=== PATIENT | male | born 1970 | race Caucasian/White ===

== ENCOUNTER 2024-11-26 19:42 | Inpatient (IN) | payer OTHER ==
[~2024-11-26] VITALS: Ht 170.2 cm; Wt 141.3 kg
[2024-11-26] MEDS: SODIUM CHLORIDE 0.9% 1,000 ML IV ONE ×3 (20:44→22:16)
[2024-11-26] MEDS ORDERED: CALCIUM GLUCONATE 100MG/ML 10ML VIAL IV ONE (20:45)
[2024-11-26 20:57] LABS: HEMATOCRIT. 37.7 % (42.0-52.0); HEMOGLOBIN. 11.6 g/dL (14.0-18.0); MEAN CORPUSCULAR HEMOGLOBIN 28.1 pg (28.0-32.0); MEAN CORPUSCULAR HGB CONC 30.7 g/dL (31.0-37.0); MEAN CORPUSCULAR VOLUME 91.5 fL (80.0-94.0); MEAN PLATELET VOLUME 9.6 fl (7.4-10.4); PLATELET 241 x1000/uL (130-400); RED BLOOD CELL COUNT 4.12 mill/uL (4.7-6.1); RED CELL DISTRIBUTION WIDTH 17.3 % (11.6-14.6); WHITE BLOOD COUNT 11.2 x1000/uL (4.5-11.0)
[2024-11-26 21:01] LABS: DIFFERENTIAL COMMENT 1; PROTHROMBIN TIME 10.7 sec (9.6-11.0)
[2024-11-26 21:05] LABS: CHLORIDE 94 mEq/L (98-107); SODIUM 128 mEq/L (136-145)
[2024-11-26 21:07] LABS: CALCIUM 8.4 mg/dL (8.7-10.4)
[2024-11-26 21:12] LABS: ETHANOL BLOOD < 10 mg/dL (<10); GLUCOSE 191 mg/dL (70-105); UREA NITROGEN BLOOD 84 mg/dL (9-23)
[2024-11-26 21:13] LABS: ALANINE AMINOTRANSFERASE 17 IU/L (10-49); ALBUMIN 4.1 g/dL (3.2-4.8); ASPARTATE AMINOTRANSFERASE 23 IU/L (<34); PLATELET ESTIMATE NORMAL
[2024-11-26 21:14] LABS: BILIRUBIN DIRECT < 0.1 mg/dL (<=3.0); BILIRUBIN TOTAL 0.2 mg/dL (0.1-1.0); PROTEIN TOTAL 7.2 g/dL (6.0-8.3)
[2024-11-26] MEDS ORDERED: EPINEPHRINE 5 MG in SODIUM CHLORIDE 0.9% 245 ML IV ONE (21:15)
[2024-11-26 21:16] LABS: THYROID STIMULATING HORMONE 0.95 uIU/mL (0.55-4.78)
[2024-11-26 21:20] LABS: BG BASE EXCESS -24.1 mmol/L (-2.0-3.0); BG CARBOXYHEMOGLOBIN 0.3 % (0.5-1.5); BG DEOXYHEMOGLOBIN 6.5 % (0.0-5.0); BG FRACTION INSPIRED OXYGEN 36; BG HCO3 ACT 6.2 mmol/L (21.0-28.0); BG METHEMOGLOBIN 0.3 % (0.5-1.5); BG OXYGEN SATURATION 93.5 % (94.0-98.0); BG OXYHEMOGLOBIN 92.9 % (94.0-98.0); BG PCO2 26.6 mmHg (35.0-48.0); BG PH 6.983 (7.350-7.450); BG PO2 90.8 mmHg (83.0-108.0); BG SAMPLE SITE LEFT RADIAL; BG TOTAL HEMOGLOBIN 11.4 g/dL (13.5-17.5); BG VENT MODE NASAL CANNULA
[2024-11-26 21:20] LABS: CARBON DIOXIDE < 10 mEq/L (21-32); POTASSIUM 8.1 mEq/L (3.5-5.1)
[2024-11-26 21:21] LABS: CREATININE 16.2 mg/dL (0.6-1.3)
[2024-11-26 21:22] LABS: TROPONIN I HIGH SENSITIVITY 72 ng/L (3.0-53)
[2024-11-26] MEDS: CALCIUM GLUCONATE 1GM PREMIX 50 ML IV SCH (21:30)
[2024-11-26] MEDS: DEXTROSE 50% WATER 50ML SYRINGE IV ONE (21:36)
[2024-11-26 21:37] VITALS: PULSE 62; RESP 20; O2SAT 99
[2024-11-26] MEDS: ALBUTEROL (0.083%) 2.5MG/3ML NEB HHN ONE (21:37)
[2024-11-26] MEDS: INSULIN REGULAR (HUMULIN R) 1000UNITS/10ML VIAL IV ONE (21:38)
[2024-11-26] MEDS: EPINEPHRINE 5 MG in SODIUM CHLORIDE 0.9% 245 ML IV NR (21:41)
[2024-11-26] MEDS: SODIUM BICARBONATE 8.4% 50MEQ/50ML SYR IV ONE (21:42)
[2024-11-26] MEDS: CALCIUM GLUCONATE 100MG/ML 10ML VIAL IV ONE (21:49)
[2024-11-26] MEDS: SODIUM BICARBONATE 100 MEQ in SODIUM CHLORIDE 0.45% 900 ML IV SCH (22:10)
[2024-11-26] MEDS: SODIUM ZIRCONIUM CYCLOSILICATE 10GM/PACKET PO NR (22:21)
[2024-11-26] MEDS ORDERED: IPRATROPIUM/ALBUTEROL 0.5-3(2.5)MG/3ML NEB NEB PRN (22:30)
[2024-11-26] MEDS: CEFTRIAXONE 1GM/50ML 50 ML IV ONE (22:38)
[2024-11-26] MEDS ORDERED: BLOOD SUGAR DIAGNOSTIC STRIP TEST PRN (23:00)
[2024-11-26] MEDS ORDERED: SODIUM CHLORIDE 0.9% 1,000 ML IV SCH (23:00)
[2024-11-26] MEDS ORDERED: POTASSIUM CHLORIDE 40 MEQ in SODIUM CHLORIDE 0.9% 250 ML IV PRN (23:00)
[2024-11-26] MEDS ORDERED: DEXT 5%/0.9% NACL 1,000 ML IV SCH (23:00)
[2024-11-26] MEDS ORDERED: DEXTROSE 50% WATER 50ML SYRINGE IV PRN ×2 (23:00→23:15)
[2024-11-26] MEDS ORDERED: SODIUM PHOSPHATE 15 MMOL in SODIUM CHLORIDE 0.9% 250 ML IV PRN (23:00)
[2024-11-26] MEDS ORDERED: MAGNESIUM 2 G PREMIX 50 ML IV PRN (23:00)
[2024-11-26] MEDS ORDERED: KCL 20MEQ/100ML PREMIX 100 ML IV PRN (23:00)
[2024-11-26] MEDS: SODIUM POLYSTYRENE SULFONATE 15 G/60 ML BOT PO NR (23:30)
[2024-11-26] MEDS ORDERED: LIDOCAINE 2% 6ML GLYDO MM NR (23:45)
[2024-11-26 23:59] LABS: CHLORIDE 98 mEq/L (98-107); SODIUM 133 mEq/L (136-145)
[2024-11-27] VITALS (95 sets, daily range): BP systolic 62–166; BP diastolic 27–80; PULSE 102–131; RESP 10–32; TEMP 36.1–37.4; O2SAT 89–100
[2024-11-27] LABS: CALCIUM 8.2 mg/dL (8.7-10.4)
[2024-11-27] MEDS ORDERED: POTASSIUM CHLORIDE 40 MEQ in SODIUM CHLORIDE 0.9% 230 ML IV PRN
[2024-11-27] MEDS ORDERED: DOCUSATE SODIUM 100MG CAPSULE PO PRN
[2024-11-27] MEDS ORDERED: MAGNESIUM 2 G PREMIX 50 ML IV PRN
[2024-11-27] MEDS ORDERED: INSULIN REGULAR (DRIP) 100 UNITS in SODIUM CHLORIDE 0.9% 99 ML IV SCH
[2024-11-27] MEDS ORDERED: MAGNESIUM/ALUMINUM HYDROXIDE/SIMETHICONE 30ML UDC PO PRN
[2024-11-27] MEDS ORDERED: BLOOD SUGAR DIAGNOSTIC STRIP TEST PRN
[2024-11-27] MEDS ORDERED: KCL 20MEQ/100ML PREMIX 100 ML IV PRN
[2024-11-27] MEDS ORDERED: SODIUM PHOSPHATE 15 MMOL in SODIUM CHLORIDE 0.9% 245 ML IV PRN
[2024-11-27 00:04] LABS: GLUCOSE 271 mg/dL (70-105); IRON 66 ug/dL (65-175); URIC ACID 6.4 mg/dL (3.7-9.2)
[2024-11-27 00:05] LABS: UREA NITROGEN BLOOD 81 mg/dL (9-23)
[2024-11-27 00:07] LABS: TOTAL IRON BINDING CAPACITY 415 ug/dl (250-425)
[2024-11-27 00:10] LABS: FERRITIN 57 ng/mL (22-322)
[2024-11-27] MEDS ORDERED: EPINEPHRINE 10 MG in SODIUM CHLORIDE 0.9% 240 ML IV SCH (00:30)
[2024-11-27] MEDS ORDERED: MIDODRINE HCL 5MG TABLET PO PRN (00:30)
[2024-11-27] MEDS: INSULIN REGULAR 100U/100ML PMX 100 ML IV SCH (00:33)
[2024-11-27 00:36] LABS: VITAMIN B12 SERUM > 2000 pg/mL (211-911)
[2024-11-27 00:59] LABS: BG BASE EXCESS -28.3 mmol/L (-2.0-3.0); BG CARBOXYHEMOGLOBIN 0.1 % (0.5-1.5); BG DEOXYHEMOGLOBIN 4.6 % (0.0-5.0); BG FRACTION INSPIRED OXYGEN 21; BG METHEMOGLOBIN 0.3 % (0.5-1.5); BG OXYGEN SATURATION 95.4 % (94.0-98.0); BG PCO2 22.4 mmHg (35.0-48.0); BG PH 6.866 (7.350-7.450); BG PO2 109.8 mmHg (83.0-108.0); BG SAMPLE SITE LEFT RADIAL; BG TOTAL HEMOGLOBIN 11.7 g/dL (13.5-17.5); BG VENT MODE ROOM AIR
[2024-11-27 01:00] LABS: CHLORIDE 98 mEq/L (98-107); SODIUM 133 mEq/L (136-145)
[2024-11-27 01:01] LABS: CALCIUM 8.4 mg/dL (8.7-10.4)
[2024-11-27 01:05] LABS: GLUCOSE 282 mg/dL (70-105)
[2024-11-27 01:06] LABS: UREA NITROGEN BLOOD 79 mg/dL (9-23)
[2024-11-27 01:48] LABS: CARBON DIOXIDE < 10 mEq/L (21-32); CREATININE 15.8 mg/dL (0.6-1.3)
[2024-11-27 01:49] LABS: PHOSPHORUS 12.3 mg/dL (2.5-4.9); TROPONIN I HIGH SENSITIVITY 114 ng/L (3.0-53)
[2024-11-27] MEDS: BLOOD SUGAR DIAGNOSTIC STRIP TEST SCH ×4 (01:52→22:05)
[2024-11-27 02:01] LABS: CARBON DIOXIDE < 10 mEq/L (21-32)
[2024-11-27] MEDS: EPINEPHRINE 5 MG in SODIUM CHLORIDE 0.9% 250 ML IV PRN (02:29)
[2024-11-27] MEDS: SODIUM BICARBONATE 150 MEQ in SODIUM CHLORIDE 0.9% 850 ML IV SCH (04:23)
[2024-11-27] MEDS: VANCOMYCIN 1G PREMIX 200 ML IV SCH (04:24)
[2024-11-27] MEDS: PANTOPRAZOLE SODIUM 40 MG/VIAL IV SCH ×2 (04:24→16:38)
[2024-11-27] MEDS: SODIUM BICARBONATE 8.4% 50MEQ/50ML SYR IV NR (04:24)
[2024-11-27] MEDS: EPINEPHRINE 10 MG in SODIUM CHLORIDE 0.9% 240 ML IV PRN (04:34)
[2024-11-27] MEDS: NOREPINEPHRINE 8MG/250ML PMX 250 ML IV PRN (05:06)
[2024-11-27] MEDS ORDERED: PIPERACILLIN/TAZO 3.375G/100ML 100 ML IV SCH (06:00)
[2024-11-27 06:38] LABS: HEMATOCRIT. 37.8 % (42.0-52.0); HEMOGLOBIN. 11.4 g/dL (14.0-18.0); MEAN CORPUSCULAR HEMOGLOBIN 28.7 pg (28.0-32.0); MEAN CORPUSCULAR HGB CONC 30.2 g/dL (31.0-37.0); MEAN PLATELET VOLUME 10.2 fl (7.4-10.4); PLATELET 236 x1000/uL (130-400); RED BLOOD CELL COUNT 3.98 mill/uL (4.7-6.1); RED CELL DISTRIBUTION WIDTH 17.6 % (11.6-14.6); WHITE BLOOD COUNT 14.6 x1000/uL (4.5-11.0)
[2024-11-27 06:39] LABS: CALCIUM 8.3 mg/dL (8.7-10.4); CHLORIDE 99 mEq/L (98-107); POTASSIUM 5.5 mEq/L (3.5-5.1); SODIUM 135 mEq/L (136-145)
[2024-11-27 06:41] LABS: DIFFERENTIAL COMMENT 1
[2024-11-27 06:43] LABS: TRIGLYCERIDE 129 mg/dL (0-150)
[2024-11-27 06:44] LABS: GLUCOSE 229 mg/dL (70-105)
[2024-11-27 06:45] LABS: ALANINE AMINOTRANSFERASE 21 IU/L (10-49); ALBUMIN 3.7 g/dL (3.2-4.8); ASPARTATE AMINOTRANSFERASE 30 IU/L (<34); CREATINE KINASE 304 IU/L (46-171); LDL CHOLESTEROL 40 mg/dL (5-100); UREA NITROGEN BLOOD 67 mg/dL (9-23)
[2024-11-27 06:46] LABS: BILIRUBIN DIRECT < 0.1 mg/dL (<=3.0); CHOLESTEROL 98 mg/dL (<200); HDL CHOLESTEROL 38 mg/dL (>55)
[2024-11-27 06:47] LABS: BILIRUBIN TOTAL < 0.2 mg/dL (0.1-1.0); PROTEIN TOTAL 6.6 g/dL (6.0-8.3); TROPONIN I HIGH SENSITIVITY 227 ng/L (3.0-53)
[2024-11-27] MEDS ORDERED: BLOOD SUGAR DIAGNOSTIC STRIP TEST SCH (07:50)
[2024-11-27] MEDS: ASPIRIN 325MG EC TABLET PO NR (08:15)
[2024-11-27] MEDS ORDERED: INSULIN LISPRO 100 UNITS/ML SUBCUT SCH (08:20)
[2024-11-27 08:38] LABS: CALCIUM 7.8 mg/dL (8.7-10.4); CARBON DIOXIDE 12 mEq/L (21-32); CHLORIDE 101 mEq/L (98-107); SODIUM 137 mEq/L (136-145)
[2024-11-27 08:43] LABS: GLUCOSE 158 mg/dL (70-105)
[2024-11-27 08:44] LABS: UREA NITROGEN BLOOD 79 mg/dL (9-23)
[2024-11-27 08:54] LABS: BG BASE EXCESS -17.6 mmol/L (-2.0-3.0); BG CARBOXYHEMOGLOBIN 0.8 % (0.5-1.5); BG DEOXYHEMOGLOBIN 2.9 % (0.0-5.0); BG FRACTION INSPIRED OXYGEN 28; BG METHEMOGLOBIN 0.3 % (0.5-1.5); BG OXYGEN SATURATION 97.1 % (94.0-98.0); BG PCO2 24.4 mmHg (35.0-48.0); BG PH 7.187 (7.350-7.450); BG PO2 103.3 mmHg (83.0-108.0); BG SAMPLE SITE RIGHT RADIAL; BG TOTAL HEMOGLOBIN 10.9 g/dL (13.5-17.5); BG VENT MODE NASAL CANNULA
[2024-11-27 08:58] LABS: CARBON DIOXIDE < 10 mEq/L (21-32); CREATININE 15.9 mg/dL (0.6-1.3)
[2024-11-27] MEDS ORDERED: SODIUM CHLORIDE 0.9% 1,000 ML IV SCH (09:00)
[2024-11-27] MEDS: MULTIVITAMINS,THER W-MINERALS TABLET PO SCH (09:00)
[2024-11-27 09:11] LABS: HEPATITIS B SURFACE ANTIGEN NEGATIVE (Negative)
[2024-11-27 09:14] LABS: CREATININE 15.5 mg/dL (0.6-1.3)
[2024-11-27] MEDS: PIPERACILLIN/TAZO 3.375G/50ML 50 ML IV SCH (09:20)
[2024-11-27] MEDS: ENOXAPARIN 30MG/0.3ML SYR SUBCUT SCH (09:21)
[2024-11-27] MEDS: FAMOTIDINE 20MG/2ML VIAL IV SCH (09:21)
[2024-11-27] MEDS: SODIUM CHLORIDE 0.9% 1,000 ML IV ONE (09:22)
[2024-11-27 09:31] LABS: HEPATITIS A AB IGM NEGATIVE (Negative)
[2024-11-27 09:32] LABS: HEPATITIS B CORE AB IGM NEGATIVE (Negative); HEPATITIS C AB NON REACTIVE (Neg) (Negative)
[2024-11-27] MEDS: DEXT 5%/0.9% NACL 1,000 ML IV SCH ×3 (10:47→17:30)
[2024-11-27 10:55] LABS: ANISOCYTOSIS 1+; PLATELET ESTIMATE NORMAL
[2024-11-27 12:50] LABS: CREATINE KINASE MB FRACTION 12.5 ng/mL (0.5-3.6)
[2024-11-27 14:46] LABS: TROPONIN I HIGH SENSITIVITY 1373 ng/L (3.0-53)
[2024-11-27 16:37] LABS: CALCIUM 7.6 mg/dL (8.7-10.4)
[2024-11-27] MEDS: ENOXAPARIN 150MG/ML SYR SUBCUT SCH (16:38)
[2024-11-27 16:43] LABS: CREATININE 9.5 mg/dL (0.6-1.3)
[2024-11-27] MEDS ORDERED: DEXTROSE 50% WATER 50ML SYRINGE IV PRN ×2 (17:15)
[2024-11-27 17:25] LABS: PHOSPHORUS 5.9 mg/dL (2.5-4.9)
[2024-11-27] MEDS: INSULIN LISPRO 100 UNITS/ML SUBCUT SCH (18:20)
[2024-11-27] MEDS: MAGNESIUM 1 G PREMIX 100 ML IV NR (18:53)
[2024-11-27] MEDS: SODIUM CHLORIDE 0.9% 1,000 ML IV SCH ×2 (19:24)
[2024-11-27] MEDS: MAGNESIUM 2 G PREMIX 50 ML IV NR (20:21)
[2024-11-27] MEDS: CARVEDILOL 3.125 MG TABLET PO SCH (21:00)
[2024-11-27] MEDS: ATORVASTATIN CALCIUM 40MG TABLET PO SCH (21:30)
[2024-11-27] MEDS: ACETAMINOPHEN 325MG TABLET PO PRN (21:30)
[2024-11-27 22:18] LABS: INR 1.1; PARTIAL THROMBOPLASTIN TIME 37.5 sec (23.4-31.0); PROTHROMBIN TIME 11.8 sec (9.6-11.0)
[2024-11-27 22:21] LABS: CREATINE KINASE 396 IU/L (46-171); CREATINE KINASE MB FRACTION 22.4 ng/mL (0.5-3.6)
[2024-11-27 22:42] LABS: TROPONIN I HIGH SENSITIVITY 6046 ng/L (3.0-53)
[2024-11-27] MEDS: HEPARIN 60 UNITS/KG BOLUS IV NR (23:04)
[2024-11-27] MEDS: HEPARIN 25,000 UNITS PREMIX 250 ML IV PRN (23:18)
[2024-11-28] VITALS (52 sets, daily range): BP systolic 87–168; BP diastolic 39–98; PULSE 90–108; RESP 6–29; TEMP 36.8–37.3; O2SAT 87–96
[2024-11-28 01:34] LABS: CREATINE KINASE MB FRACTION 18.2 ng/mL (0.5-3.6)
[2024-11-28 03:07] LABS: HEMATOCRIT. 26.9 % (42.0-52.0); HEMOGLOBIN. 8.7 g/dL (14.0-18.0); MEAN CORPUSCULAR HEMOGLOBIN 28.3 pg (28.0-32.0); MEAN CORPUSCULAR HGB CONC 32.3 g/dL (31.0-37.0); MEAN CORPUSCULAR VOLUME 87.6 fL (80.0-94.0); MEAN PLATELET VOLUME 8.8 fl (7.4-10.4); PLATELET 136 x1000/uL (130-400); RED BLOOD CELL COUNT 3.06 mill/uL (4.7-6.1); RED CELL DISTRIBUTION WIDTH 17.4 % (11.6-14.6); WHITE BLOOD COUNT 5.2 x1000/uL (4.5-11.0)
[2024-11-28 03:09] LABS: DIFFERENTIAL COMMENT 1
[2024-11-28 03:15] LABS: POTASSIUM 4.3 mEq/L (3.5-5.1)
[2024-11-28 03:16] LABS: CALCIUM 7.1 mg/dL (8.7-10.4)
[2024-11-28 03:24] LABS: CREATININE 10.6 mg/dL (0.6-1.3)
[2024-11-28 04:09] LABS: TROPONIN I HIGH SENSITIVITY 5688 ng/L (3.0-53)
[2024-11-28 04:30] LABS: PLATELET ESTIMATE NORMAL
[2024-11-28 04:31] LABS: ANISOCYTOSIS 1+
[2024-11-28] MEDS ORDERED: HEPARIN BOLUS PRN aPTT <30 IV (06:00)
[2024-11-28] MEDS ORDERED: HEPARIN BOLUS PRN aPTT 30-44 IV (06:00)
[2024-11-28 07:09] LABS: HEMATOCRIT. 26.1 % (42.0-52.0); HEMOGLOBIN. 8.6 g/dL (14.0-18.0); MEAN CORPUSCULAR HEMOGLOBIN 28.8 pg (28.0-32.0); MEAN CORPUSCULAR VOLUME 87.3 fL (80.0-94.0); MEAN PLATELET VOLUME 9.5 fl (7.4-10.4); PLATELET 146 x1000/uL (130-400); RED BLOOD CELL COUNT 2.99 mill/uL (4.7-6.1); RED CELL DISTRIBUTION WIDTH 17.3 % (11.6-14.6); WHITE BLOOD COUNT 5.7 x1000/uL (4.5-11.0)
[2024-11-28 07:18] LABS: POTASSIUM 4.5 mEq/L (3.5-5.1)
[2024-11-28 07:19] LABS: CALCIUM 7.2 mg/dL (8.7-10.4)
[2024-11-28 07:50] LABS: DIFFERENTIAL COMMENT 1
[2024-11-28 07:57] LABS: CREATININE 10.7 mg/dL (0.6-1.3)
[2024-11-28 08:31] LABS: PLATELET ESTIMATE NORMAL
[2024-11-28 08:32] LABS: ANISOCYTOSIS 1+
[2024-11-28] MEDS: GUAIFENESIN 200MG/10ML SUGAR FREE UDC PO PRN (08:39)
[2024-11-28] MEDS: CALCIUM ACETATE 667MG CAPSULE PO SCH (08:40)
[2024-11-28] MEDS: ASPIRIN 81MG EC TABLET PO SCH (08:40)
[2024-11-28] MEDS: FOLIC ACID/VITAMIN B COMP W-C TABLET PO SCH (08:40)
[2024-11-28 08:58] LABS: BG BASE EXCESS -5.9 mmol/L (-2.0-3.0); BG CARBOXYHEMOGLOBIN 0.6 % (0.5-1.5); BG DEOXYHEMOGLOBIN 2.6 % (0.0-5.0); BG FRACTION INSPIRED OXYGEN 28; BG HCO3 ACT 18.6 mmol/L (21.0-28.0); BG METHEMOGLOBIN 0.3 % (0.5-1.5); BG OXYGEN SATURATION 97.4 % (94.0-98.0); BG OXYHEMOGLOBIN 96.5 % (94.0-98.0); BG PCO2 32.8 mmHg (35.0-48.0); BG PH 7.371 (7.350-7.450); BG PO2 101.7 mmHg (83.0-108.0); BG SAMPLE SITE LEFT RADIAL; BG TOTAL HEMOGLOBIN 9.3 g/dL (13.5-17.5); BG VENT MODE NASAL CANNULA
[2024-11-28 09:09] LABS: COMPLEMENT C3 101 mg/dL (82-167); COMPLEMENT C4 20 mg/dL (12-38)
[2024-11-28 15:07] LABS: ANTI-NUCLEAR ANTIBODIES DIRECT Negative (Negative)
[2024-11-28] MEDS: THROAT LOZENGES-BENZOCAINE/MENTH/CETYLPYRD CL LOZENGES MM PRN (15:36)
[2024-11-28] MEDS: ENOXAPARIN 150MG/ML SYR SUBCUT SCH (15:38)
[2024-11-28] MEDS: CLONIDINE 0.1MG TABLET PO PRN (19:06)
[2024-11-28 20:09] LABS: CLARITY URINE CLOUDY (CLEAR); COLOR URINE YELLOW (YELLOW); GLUCOSE URINE NEGATIVE (NEGATIVE); KETONES URINE NEGATIVE (NEGATIVE); LEUKOCYTE ESTERASE URINE 2+ (NEGATIVE); NITRITE URINE NEGATIVE (NEGATIVE); OCCULT BLOOD URINE 3+ (NEGATIVE); PROTEIN URINE 2+ (NEGATIVE); SPECIFIC GRAVITY URINE 1.012 (1.005-1.030); UROBILINOGEN URINE 0.2 E.U./dL (0.2-1.0)
[2024-11-28 20:49] LABS: SQUAMOUS EPITHELIAL CELL URINE 1+ /lpf (RARE/1+)
[2024-11-28 20:50] LABS: BACTERIA URINE 2+
[2024-11-29] VITALS (39 sets, daily range): BP systolic 100–165; BP diastolic 51–109; PULSE 82–106; RESP 14–31; TEMP 36.00288–37; O2SAT 82–98
[2024-11-29] MEDS: ONDANSETRON HCL 4MG/2ML INJ IV PRN (03:30)
[2024-11-29] MEDS: IPRATROPIUM/ALBUTEROL 0.5-3(2.5)MG/3ML NEB HHN PRN (03:35)
[2024-11-29] MEDS: FUROSEMIDE 20MG/2ML VIAL IVP NR (04:18)
[2024-11-29 08:20] LABS: HEMATOCRIT. 28.5 % (42.0-52.0); HEMOGLOBIN. 9.2 g/dL (14.0-18.0); MEAN CORPUSCULAR HEMOGLOBIN 28.1 pg (28.0-32.0); MEAN CORPUSCULAR HGB CONC 32.2 g/dL (31.0-37.0); MEAN CORPUSCULAR VOLUME 87.2 fL (80.0-94.0); MEAN PLATELET VOLUME 9.8 fl (7.4-10.4); PLATELET 151 x1000/uL (130-400); RED BLOOD CELL COUNT 3.27 mill/uL (4.7-6.1); RED CELL DISTRIBUTION WIDTH 17.1 % (11.6-14.6); WHITE BLOOD COUNT 8.1 x1000/uL (4.5-11.0)
[2024-11-29 08:33] LABS: POTASSIUM 4.6 mEq/L (3.5-5.1)
[2024-11-29 08:35] LABS: CALCIUM 7.9 mg/dL (8.7-10.4)
[2024-11-29 08:38] LABS: DIFFERENTIAL COMMENT 1
[2024-11-29 08:58] LABS: CREATININE 11.3 mg/dL (0.6-1.3)
[2024-11-29] MEDS: BLOOD SUGAR DIAGNOSTIC STRIP TEST SCH (12:50)
[2024-11-29 13:07] LABS: ATYPICAL P-ANCA <1:20 titer (Neg:<1:20); CYTOPLASMIC C-ANCA <1:20 titer (Neg:<1:20); PERINUCLEAR P-ANCA <1:20 titer (Neg:<1:20)
[2024-11-29 13:34] LABS: ANISOCYTOSIS 1+; PLATELET ESTIMATE NORMAL
[2024-11-29] MEDS: PREDNISONE 20MG TABLET PO SCH (13:58)
[2024-11-29] MEDS: ACETAMINOPHEN 325MG TABLET PO PRN (20:41)
[2024-11-30] VITALS (11 sets, daily range): BP systolic 124–214; BP diastolic 63–132; PULSE 65–98; RESP 16–27; TEMP 36.1–36.7; O2SAT 92–97
[2024-11-30] MEDS: IPRATROPIUM/ALBUTEROL 0.5-3(2.5)MG/3ML NEB HHN SCH (08:00)
[2024-11-30 13:03] LABS: CARBON DIOXIDE 24 mEq/L (21-32); CHLORIDE 105 mEq/L (98-107); SODIUM 141 mEq/L (136-145)
[2024-11-30 13:05] LABS: CALCIUM 9.2 mg/dL (8.7-10.4)
[2024-11-30 13:10] LABS: GLUCOSE 85 mg/dL (70-105); UREA NITROGEN BLOOD 41 mg/dL (9-23)
[2024-11-30 13:12] LABS: PHOSPHORUS 5.4 mg/dL (2.5-4.9)
[2024-11-30 13:23] LABS: CREATININE 8.5 mg/dL (0.6-1.3)
[2024-11-30 22:03] LABS: HEMATOCRIT. 26.3 % (42.0-52.0); HEMOGLOBIN. 8.8 g/dL (14.0-18.0); MEAN CORPUSCULAR HEMOGLOBIN 29.3 pg (28.0-32.0); MEAN CORPUSCULAR HGB CONC 33.4 g/dL (31.0-37.0); MEAN CORPUSCULAR VOLUME 87.8 fL (80.0-94.0); MEAN PLATELET VOLUME 9.2 fl (7.4-10.4); PLATELET 180 x1000/uL (130-400); RED BLOOD CELL COUNT 2.99 mill/uL (4.7-6.1); RED CELL DISTRIBUTION WIDTH 16.9 % (11.6-14.6); WHITE BLOOD COUNT 7.8 x1000/uL (4.5-11.0)
[2024-11-30 22:04] LABS: DIFFERENTIAL COMMENT 1
[2024-11-30 22:37] LABS: ANISOCYTOSIS 1+; PLATELET ESTIMATE NORMAL
[2024-12-01] VITALS (20 sets, daily range): BP systolic 150–207; BP diastolic 88–132; PULSE 63–92; RESP 15–22; TEMP 36.6–36.8; O2SAT 91–98
[2024-12-01 05:42] LABS: POTASSIUM 4.2 mEq/L (3.5-5.1)
[2024-12-01 05:43] LABS: CALCIUM 9.4 mg/dL (8.7-10.4)
[2024-12-01 05:54] LABS: HEMATOCRIT. 27.2 % (42.0-52.0); HEMOGLOBIN. 8.9 g/dL (14.0-18.0); MEAN CORPUSCULAR HEMOGLOBIN 28.6 pg (28.0-32.0); MEAN CORPUSCULAR HGB CONC 32.7 g/dL (31.0-37.0); MEAN CORPUSCULAR VOLUME 87.4 fL (80.0-94.0); MEAN PLATELET VOLUME 9.5 fl (7.4-10.4); PLATELET 185 x1000/uL (130-400); RED BLOOD CELL COUNT 3.11 mill/uL (4.7-6.1); WHITE BLOOD COUNT 7.8 x1000/uL (4.5-11.0)
[2024-12-01 05:58] LABS: CREATININE 8.8 mg/dL (0.6-1.3)
[2024-12-01 06:46] LABS: DIFFERENTIAL COMMENT 1
[2024-12-01 08:11] LABS: ANTI-MYELOPEROXIDASE AB < 0.2 units (0.0-0.9); ANTI-PROTEINASE 3 ABS < 0.2 units (0.0-0.9)
[2024-12-01] MEDS: FAMOTIDINE 20MG/2ML VIAL IV SCH (09:29)
[2024-12-01 14:27] LABS: CLARITY URINE CLEAR (CLEAR); COLOR URINE YELLOW (YELLOW); GLUCOSE URINE NEGATIVE (NEGATIVE); KETONES URINE TRACE (NEGATIVE); LEUKOCYTE ESTERASE URINE NEGATIVE (NEGATIVE); NITRITE URINE NEGATIVE (NEGATIVE); OCCULT BLOOD URINE 1+ (NEGATIVE); PH URINE 5.5 (4.5-8.0); PROTEIN URINE 1+ (NEGATIVE); UROBILINOGEN URINE 0.2 E.U./dL (0.2-1.0)
[2024-12-01 14:38] LABS: BACTERIA URINE NONE SEEN; SQUAMOUS EPITHELIAL CELL URINE 1+ /lpf (RARE/1+); YEAST URINE NONE SEEN
[2024-12-01 15:13] LABS: ANISOCYTOSIS 1+; PLATELET ESTIMATE NORMAL
[2024-12-01] MEDS ORDERED: SODIUM CHLORIDE 10% FOR INH 15ML NEB INH SCH (18:00)
[2024-12-01] MEDS: DOXYCYCLINE HYCLATE 100MG CAPSULE PO SCH (21:27)
[2024-12-02] VITALS (16 sets, daily range): BP systolic 130–189; BP diastolic 82–103; PULSE 71–88; RESP 13–21; TEMP 36.5–36.9; O2SAT 87–99
[2024-12-02] MEDS: CEFEPIME 1GM/50ML 50 ML IV SCH (00:06)
[2024-12-02] MEDS: VANCOMYCIN 2,000 MG in SODIUM CHLORIDE 0.9% 500 ML IV NR (01:16)
[2024-12-02 06:50] LABS: BASOPHILS % 0.1 % (0.0-2.0); EOSINOPHILS % 3.6 % (0.0-5.0); HEMATOCRIT. 28.5 % (42.0-52.0); HEMOGLOBIN. 9.5 g/dL (14.0-18.0); LYMPHOCYTES % 7.1 % (20.0-50.0); MEAN CORPUSCULAR HGB CONC 33.1 g/dL (31.0-37.0); MEAN CORPUSCULAR VOLUME 87.5 fL (80.0-94.0); MONOCYTES % 10.4 % (2.0-8.0); NEUTROPHILS % 78.8 % (40.0-76.0); PLATELET 222 x1000/uL (130-400); RED BLOOD CELL COUNT 3.26 mill/uL (4.7-6.1); RED CELL DISTRIBUTION WIDTH 16.8 % (11.6-14.6); WHITE BLOOD COUNT 8.1 x1000/uL (4.5-11.0)
[2024-12-02 06:54] LABS: CHLORIDE 107 mEq/L (98-107); POTASSIUM 3.7 mEq/L (3.5-5.1); SODIUM 146 mEq/L (136-145)
[2024-12-02 06:59] LABS: CARBON DIOXIDE 28 mEq/L (21-32)
[2024-12-02 07:00] LABS: CALCIUM 9.7 mg/dL (8.7-10.4)
[2024-12-02 07:04] LABS: GLUCOSE 105 mg/dL (70-105)
[2024-12-02 07:05] LABS: UREA NITROGEN BLOOD 24 mg/dL (9-23)
[2024-12-02 07:06] LABS: ALANINE AMINOTRANSFERASE 22 IU/L (10-49); ALBUMIN 3.5 g/dL (3.2-4.8); ASPARTATE AMINOTRANSFERASE 38 IU/L (<34)
[2024-12-02 07:07] LABS: BILIRUBIN DIRECT 0.1 mg/dL (<=3.0); BILIRUBIN TOTAL 0.3 mg/dL (0.1-1.0); PROTEIN TOTAL 6.3 g/dL (6.0-8.3)
[2024-12-02 07:55] LABS: CREATININE 4.7 mg/dL (0.6-1.3)
[2024-12-02] MEDS: AMLODIPINE 5MG TABLET PO SCH (09:00)
[2024-12-02] MEDS ORDERED: CEFEPIME 1,000 MG in DEXT 5% WATER 100 ML IV SCH (09:00)
[2024-12-02] MEDS ORDERED: LIDOCAINE HCL 1% 20ML VIAL ONE (14:26)
[2024-12-02] MEDS ORDERED: HEPARIN 1000 UNITS/ML 10ML ONE (14:26)
[2024-12-02] MEDS ORDERED: IODIXANOL 320MG/ML 100 ML BOTTLE IV ONE (14:26)
[2024-12-02] MEDS ORDERED: FENTANYL CITRATE/PF 50MCG/ML 2ML VIAL ONE (15:42)
[2024-12-02] MEDS ORDERED: MIDAZOLAM HCL 2 MG/2 ML VIAL ONE (15:42)
[2024-12-02] MEDS ORDERED: LIDOCAINE 2% 6ML GLYDO MM ONE (15:57)
[2024-12-02] MEDS: HYDRALAZINE HCL 25MG TABLET PO SCH (18:06)
[2024-12-03] VITALS (17 sets, daily range): BP systolic 150–189; BP diastolic 83–109; PULSE 71–93; RESP 16–23; TEMP 36.6696–37.1; O2SAT 91–97
[2024-12-03 06:40] LABS: HEMATOCRIT. 28.3 % (42.0-52.0); HEMOGLOBIN. 9.3 g/dL (14.0-18.0); MEAN CORPUSCULAR HGB CONC 33.1 g/dL (31.0-37.0); MEAN CORPUSCULAR VOLUME 87.8 fL (80.0-94.0); PLATELET 233 x1000/uL (130-400); RED BLOOD CELL COUNT 3.22 mill/uL (4.7-6.1); RED CELL DISTRIBUTION WIDTH 16.7 % (11.6-14.6); WHITE BLOOD COUNT 9.7 x1000/uL (4.5-11.0)
[2024-12-03 06:45] LABS: POTASSIUM 3.5 mEq/L (3.5-5.1)
[2024-12-03 06:46] LABS: CALCIUM 9.3 mg/dL (8.7-10.4)
[2024-12-03 06:51] LABS: CREATININE 4.4 mg/dL (0.6-1.3)
[2024-12-03 07:25] LABS: DIFFERENTIAL COMMENT 1
[2024-12-03] MEDS ORDERED: NALOXONE HCL 0.4MG/ML VIAL IV PRN (10:00)
[2024-12-03] MEDS: HYDROCODONE/ACETAMINOPHEN 5/325MG TABLET PO PRN (10:12)
[2024-12-03] MEDS ORDERED: MORPHINE SULFATE 2 MG/ML INJ (NOT FOR IM USE) IV ONE (10:45)
[2024-12-03] MEDS: MORPHINE SULFATE 2 MG/ML INJ (NOT FOR IM USE) IV NR (10:51)
[2024-12-03 14:04] LABS: ANISOCYTOSIS 1+; PLATELET ESTIMATE NORMAL
[2024-12-03] MEDS: ENOXAPARIN 40MG/0.4ML SYR SUBCUT SCH (17:51)
[2024-12-04] VITALS (9 sets, daily range): BP systolic 151–171; BP diastolic 76–99; PULSE 62–92; RESP 5–24; TEMP 36.4–37.1; O2SAT 93–99
[2024-12-04 12:06] LABS: BG BASE EXCESS 4.2 mmol/L (-2.0-3.0); BG CARBOXYHEMOGLOBIN 0.8 % (0.5-1.5); BG DEOXYHEMOGLOBIN 6.7 % (0.0-5.0); BG FRACTION INSPIRED OXYGEN 21; BG HCO3 ACT 26.9 mmol/L (21.0-28.0); BG METHEMOGLOBIN 0.3 % (0.5-1.5); BG OXYGEN SATURATION 93.2 % (94.0-98.0); BG OXYHEMOGLOBIN 92.2 % (94.0-98.0); BG PCO2 33.9 mmHg (35.0-48.0); BG PH 7.517 (7.350-7.450); BG PO2 63.5 mmHg (83.0-108.0); BG SAMPLE SITE RIGHT RADIAL; BG TOTAL HEMOGLOBIN 12.6 g/dL (13.5-17.5); BG VENT MODE ROOM AIR
[2024-12-04 12:26] LABS: HEMATOCRIT. 28.5 % (42.0-52.0); HEMOGLOBIN. 9.5 g/dL (14.0-18.0); MEAN CORPUSCULAR HEMOGLOBIN 29.5 pg (28.0-32.0); MEAN CORPUSCULAR HGB CONC 33.3 g/dL (31.0-37.0); MEAN CORPUSCULAR VOLUME 88.5 fL (80.0-94.0); MEAN PLATELET VOLUME 8.4 fl (7.4-10.4); PLATELET 241 x1000/uL (130-400); RED BLOOD CELL COUNT 3.22 mill/uL (4.7-6.1); RED CELL DISTRIBUTION WIDTH 16.7 % (11.6-14.6); WHITE BLOOD COUNT 9.1 x1000/uL (4.5-11.0)
[2024-12-04 12:41] LABS: POTASSIUM 3.8 mEq/L (3.5-5.1)
[2024-12-04 12:43] LABS: CALCIUM 9.3 mg/dL (8.7-10.4)
[2024-12-04 12:59] LABS: DIFFERENTIAL COMMENT 1
[2024-12-04 13:24] LABS: CREATININE 2.9 mg/dL (0.6-1.3)
[2024-12-04 15:15] LABS: GIANT PLATELETS FEW; PLATELET ESTIMATE NORMAL
[2024-12-05] VITALS (19 sets, daily range): BP systolic 130–177; BP diastolic 72–111; PULSE 64–99; RESP 0–29; TEMP 36.114–37.1; O2SAT 90–98
[2024-12-05 06:49] LABS: BASOPHILS % 0.3 % (0.0-2.0); EOSINOPHILS % 3.5 % (0.0-5.0); HEMATOCRIT. 28.9 % (42.0-52.0); HEMOGLOBIN. 9.6 g/dL (14.0-18.0); LYMPHOCYTES % 9.4 % (20.0-50.0); MEAN CORPUSCULAR HEMOGLOBIN 29.6 pg (28.0-32.0); MEAN CORPUSCULAR HGB CONC 33.3 g/dL (31.0-37.0); MEAN CORPUSCULAR VOLUME 88.9 fL (80.0-94.0); MEAN PLATELET VOLUME 8.9 fl (7.4-10.4); MONOCYTES % 12.4 % (2.0-8.0); NEUTROPHILS % 74.4 % (40.0-76.0); PLATELET 238 x1000/uL (130-400); RED BLOOD CELL COUNT 3.25 mill/uL (4.7-6.1); WHITE BLOOD COUNT 7.2 x1000/uL (4.5-11.0)
[2024-12-05 06:50] LABS: POTASSIUM 3.9 mEq/L (3.5-5.1)
[2024-12-05 06:51] LABS: CALCIUM 8.9 mg/dL (8.7-10.4)
[2024-12-05 06:55] LABS: CREATININE 3.3 mg/dL (0.6-1.3)
[2024-12-06] VITALS: BP 145/74; PULSE 69; RESP 18; TEMP 36.8; O2SAT 93
[2024-12-06 04:00] VITALS: BP 148/90; PULSE 61; RESP 19; O2SAT 94
[2024-12-06 06:34] LABS: BASOPHILS % 0.6 % (0.0-2.0); EOSINOPHILS % 4.6 % (0.0-5.0); HEMOGLOBIN. 9.4 g/dL (14.0-18.0); LYMPHOCYTES % 15.5 % (20.0-50.0); MEAN CORPUSCULAR HEMOGLOBIN 28.6 pg (28.0-32.0); MEAN CORPUSCULAR HGB CONC 32.5 g/dL (31.0-37.0); MEAN PLATELET VOLUME 9.1 fl (7.4-10.4); NEUTROPHILS % 65.3 % (40.0-76.0); PLATELET 212 x1000/uL (130-400); RED CELL DISTRIBUTION WIDTH 16.6 % (11.6-14.6); WHITE BLOOD COUNT 5.9 x1000/uL (4.5-11.0)
[2024-12-06 07:13] LABS: POTASSIUM 3.9 mEq/L (3.5-5.1)
[2024-12-06 07:14] LABS: CALCIUM 8.8 mg/dL (8.7-10.4)
[2024-12-06 07:19] LABS: CREATININE 2.5 mg/dL (0.6-1.3)
[2024-12-06 08:00] VITALS: BP 141/88; PULSE 78; RESP 12; TEMP 36.9; O2SAT 95
[2024-12-06 09:48] LABS: BG BASE EXCESS 4.3 mmol/L (-2.0-3.0); BG CARBOXYHEMOGLOBIN 0.2 % (0.5-1.5); BG FRACTION INSPIRED OXYGEN 21; BG METHEMOGLOBIN 0.3 % (0.5-1.5); BG OXYHEMOGLOBIN 96.5 % (94.0-98.0); BG PCO2 28.8 mmHg (35.0-48.0); BG PH 7.573 (7.350-7.450); BG SAMPLE SITE RIGHT RADIAL; BG TOTAL HEMOGLOBIN 9.9 g/dL (13.5-17.5); BG VENT MODE ROOM AIR
[2024-12-06 12:00] VITALS: BP 139/92; PULSE 81; RESP 17; TEMP 36.8; O2SAT 97
[2024-12-06] MEDS: LIDOCAINE HCL 1% 10 MG/ML 10ML VIAL ONE (12:49)
[2024-12-06] MEDS ORDERED: ASPI-1406 PO (13:43)
[2024-12-06] MEDS ORDERED: COR3 PO (13:43)
[2024-12-06] MEDS ORDERED: AMLO5TAB88 PO (13:43)
[2024-12-06] MEDS ORDERED: TOPUD PO (13:43)
[2024-12-06] MEDS ORDERED: FOLI0.8T53 PO (13:43)
[2024-12-06] MEDS ORDERED: HYDR25TA78 PO (13:43)
[2024-12-06] MEDS ORDERED: LIP40 PO (13:43)
[2024-12-06] MEDS ORDERED: ONDA-239 SL (13:43)
[2024-12-06 14:04] LABS: PHOSPHORUS 3.9 mg/dL (2.5-4.9)
[2024-12-06 15:26] VITALS: BP 141/88; PULSE 78; TEMP 98.5; O2SAT 95
[2024-12-06 16:00] VITALS: PULSE 77; RESP 11; TEMP 36.8; O2SAT 94
== END 2024-12-06 17:50 | disposition home or self-care (01) | DRG 871 ==
LOC: ER 19:42 → EDBD 19:42 → CVICU 23:02 → 5EST 11-29 15:16 → 3WST 12-05 19:05
PROVIDERS: ADMIT Internal Medicine; ATTEND Internal Medicine
PROC: 02HV33Z Insertion of Infusion Device into Superior Vena Cava, Percutaneous Approach (ICD-10-PCS; 2024-11-27)
PROC: B548ZZA Ultrasonography of Superior Vena Cava, Guidance (ICD-10-PCS; 2024-11-27)
PROC: 5A1D70Z Performance of Urinary Filtration, Intermittent, Less than 6 Hours Per Day (ICD-10-PCS; 2024-11-27)
PROC: 5A1D70Z Performance of Urinary Filtration, Intermittent, Less than 6 Hours Per Day (ICD-10-PCS; 2024-11-29)
PROC: 5A1D70Z Performance of Urinary Filtration, Intermittent, Less than 6 Hours Per Day (ICD-10-PCS; 2024-12-01)
PROC: B2111ZZ Fluoroscopy of Multiple Coronary Arteries using Low Osmolar Contrast (ICD-10-PCS; principal; 2024-12-02)
PROC: B2151ZZ Fluoroscopy of Left Heart using Low Osmolar Contrast (ICD-10-PCS; 2024-12-02)
PROC: 4A023N7 Measurement of Cardiac Sampling and Pressure, Left Heart, Percutaneous Approach (ICD-10-PCS; 2024-12-02)
PROC: 5A1D70Z Performance of Urinary Filtration, Intermittent, Less than 6 Hours Per Day (ICD-10-PCS; 2024-12-03)
PROC: 5A1D70Z Performance of Urinary Filtration, Intermittent, Less than 6 Hours Per Day (ICD-10-PCS; 2024-12-05)
DX: A41.9 Sepsis, unspecified organism (principal); E11.10 Type 2 diabetes mellitus with ketoacidosis without coma; R57.0 Cardiogenic shock; I21.A1 Myocardial infarction type 2; G92.8 Other toxic encephalopathy; J96.01 Acute respiratory failure with hypoxia; N18.6 End stage renal disease; J18.9 Pneumonia, unspecified organism; E87.1 Hypo-osmolality and hyponatremia; I13.2 Hypertensive heart and chronic kidney disease with heart failure and with stage 5 chronic kidney disease, or end stage renal disease; N39.0 Urinary tract infection, site not specified; N17.9 Acute kidney failure, unspecified; I42.0 Dilated cardiomyopathy; Z68.43 Body mass index [BMI] 50.0-59.9, adult; E87.5 Hyperkalemia; E11.22 Type 2 diabetes mellitus with diabetic chronic kidney disease; E86.1 Hypovolemia; G47.33 Obstructive sleep apnea (adult) (pediatric); E86.0 Dehydration; N31.9 Neuromuscular dysfunction of bladder, unspecified; D50.9 Iron deficiency anemia, unspecified; D72.820 Lymphocytosis (symptomatic); E66.01 Morbid (severe) obesity due to excess calories; E83.51 Hypocalcemia; E87.6 Hypokalemia; I48.91 Unspecified atrial fibrillation; N40.1 Benign prostatic hyperplasia with lower urinary tract symptoms; Z79.82 Long term (current) use of aspirin; F32.A Depression, unspecified; M10.9 Gout, unspecified; M54.9 Dorsalgia, unspecified; E11.65 Type 2 diabetes mellitus with hyperglycemia; I50.9 Heart failure, unspecified; I25.2 Old myocardial infarction; Z98.84 Bariatric surgery status; R33.8 Other retention of urine; Z86.73 Personal history of transient ischemic attack (TIA), and cerebral infarction without residual deficits; Z98.61 Coronary angioplasty status; Z99.2 Dependence on renal dialysis
CPT/HCPCS: 36415; 36556; 36600; 71045; 74176; 76770; 76937; 80048; 80051; 80061; 80076; 80320; 81003; 82010; 82375; 82550; 82553; 82607; 82728; 82746; 82805; 82962; 83036; 83520; 83540; 83550; 83605; 83735; 83880; 83930; 84100; 84132; 84145; 84443; 84484; 84550; 85025; 85044; 85379; 86038; 86160; 86256; 86705; 86709; 86850; 86900; 87070; 87340; 90935; 92610; 93005; 93306; 93458; 93970; 94070; 94618; 94640; 94660; 97110; 97116; 97162; 97166; 97535; 98960; 99291; 99292; A4606; C1752; C1769; C1887; C1893; J0610; J0692; J0696; J1644; J1650; J1815; J1940; J2003; J2250; J2270; J2405; J2470; J2543; J3010; J3370; J3475; J3490; J7030; J7040; J7042; J7050; J7131; J7512; Q9967; G0480